=== PATIENT | male | born 1960 | race Caucasian/White ===

== ENCOUNTER → 2017-09-07 08:59 | Outpatient (CLI) | payer BC, SELFPAY ==
--- NOTE | 2017-09-07 09:11 | XR_ITS ---
XR chest 2V HISTORY: Bronchitis, cough ITS.REASON: BRONCHITIS ORDERING PHYSICIAN: Lorna Hines PATIENT AGE: 57 years COMPARISON: None available FINDINGS: The cardiomediastinal silhouette and pulmonary vascularity are within normal limits. No lobar consolidation or collapse. No significant hyperinflation. There is a 9 mm faint ill-defined nodular opacity overlying the left heart on the frontal view. This could be due to summation artifact, nipple artifact, or developing nodule. Follow-up is recommended. There is mild biapical pleural thickening.. No acute bony abnormalities. IMPRESSION: 1. No acute finding. 2. Ill-defined nodular opacity left lung base as described above. Follow-up suggested
== END ==
PROVIDERS: PCP Family Medicine; Visit Provider Nurse Practitioner
DX: J40 Bronchitis, not specified as acute or chronic (principal)
CPT/HCPCS: 71046

== ENCOUNTER → 2017-09-19 12:45 | Outpatient (CLI) | payer BC, SELFPAY ==
--- NOTE | 2017-09-19 12:50 | CT_ITS ---
CT chest wo/w con HISTORY: ITS.REASON: MULTIPLE LUNG NODULES ORDERING PHYSICIAN: Lorna Hines PATIENT AGE: 57 years TECHNIQUE: Axial images obtained. Sagittal and coronal reformatted images are also generated and reviewed. CONTRAST: 75ml Isovue 370 I.V. COMPARISON: Radiograph of 09/07/2017 FINDINGS: No mediastinal or hilar mass is evident. There is mild cardiomegaly. No evidence of aortic aneurysm or central pulmonary embolus. No pericardial effusion. There are calcified nodes in the left hilum. Mild atelectatic/fibrotic changes are present in the left lung base with vascular crowding likely accounting for the nodular opacity noted on the radiograph. No suspicious pulmonary nodules are evident. There are mild atelectatic/fibrotic changes in the right lung bases well. Upper abdominal images show splenomegaly at 14 cm. No acute bony findings. IMPRESSION: 1. No suspicious pulmonary nodules evident. 2. Mild bibasilar atelectasis or fibrotic change. 3. Nodular opacity overlying the left lower chest on the radiograph may been due to summation density from vascular crowding or perhaps a nipple shadow. 4. Mild cardiomegaly and mild splenomegaly
== END ==
PROVIDERS: Family Provider Family Medicine; PCP Family Medicine; Visit Provider Nurse Practitioner
DX: R93.8 Abnormal findings on diagnostic imaging of other specified body structures (principal); R91.8 Other nonspecific abnormal finding of lung field
CPT/HCPCS: 71270; Q9967

== ENCOUNTER → 2017-12-18 13:21 | Outpatient (CLI) | payer BC, SELFPAY ==
--- NOTE | 2017-12-18 13:30 | CT_ITS ---
CT abdomen pelvis wo con CLINICAL INDICATION: ITS.REASON: HEMATURIA,FLANK PAIN, ORDERING PHYSICIAN: Henry Rajan MD PATIENT AGE: 57 years COMPARISON: 12/15/2016 TECHNIQUE: Axial images obtained with sagittal and coronal reformats. All CT scans at the facility use one or more dose reduction, viz: automated exposure control; ma/kV adjustment per patient size (including targeted exams where dose is matched to indication; i.e. head); or iterative reconstruction technique. PROCEDURE: Oral Contrast: None IV Contrast: None . FINDINGS: There are chronic changes in the lung bases. No focal liver lesion. The gallbladder, spleen, adrenal glands, and pancreas have an unremarkable unenhanced CT appearance. No renal or ureteral calculi. No hydronephrosis or renal mass. No intestinal obstruction or free air. Prior appendectomy. There are are a few colonic diverticula. No evidence of diverticulitis. Prostate is enlarged measuring 5.6 x 5.4 cm transverse and AP. Urinary bladder wall is thickened and there is some calcification noted base urinary bladder centrally slightly toward the right similar to the previous exam. Increased density is present in the left inguinal region may be due to prior surgery. There are few small mesenteric nodes. No acute bony anomalies. IMPRESSION: 1. Overall no significant change compared to 12/15/2016. 2. There remains enlarged prostate and seminal vesicles with indentation along the base the urinary bladder and minimal calcification at the base the urinary bladder along with mild thickening of the urinary bladder. These findings are not significantly changed. 3. No renal or ureteral calculi
== END ==
PROVIDERS: Family Provider Family Medicine; PCP Family Medicine; Visit Provider Urology
DX: R31.9 Hematuria, unspecified (principal); R10.9 Unspecified abdominal pain; N20.0 Calculus of kidney
CPT/HCPCS: 74176

== ENCOUNTER → 2019-05-09 14:11 | Outpatient (CLI) | payer BC, SELFPAY ==
--- NOTE | 2019-05-09 14:12 | US_ITS ---
PROCEDURE: US KIDNEY CLINICAL INDICATION: Pain with urination COMPARISON: No exams were available for comparison FINDINGS: The kidneys are normal size shape and position. No hydronephrosis mass or perinephric fluid evident. IMPRESSION: Negative bilateral renal ultrasound Dictated by: Harshad Quinones MD 05/09/2019 18:30 Electronically signed by Harshad Quinones MD in [place] 05/09/2019 18:30
== END ==
PROVIDERS: PCP Family Medicine; Visit Provider Urology
DX: R10.9 Unspecified abdominal pain (principal); R31.9 Hematuria, unspecified
CPT/HCPCS: 76770

== ENCOUNTER → 2019-05-22 07:42 | Outpatient (CLI) | payer BC, SELFPAY ==
--- NOTE | 2019-05-22 07:44 | CT_ITS ---
PROCEDURE: CT ABDOMEN PELVIS WO CON CLINICAL INDICATION: KIDNEY STONE Frequent urinary tract infections COMPARISON: [facility] CT abdomen pelvis wo con from 12/18/2017 TECHNIQUE: Axial images obtained with sagittal and coronal reformats. All CT scans at the facility use one or more dose reduction, viz: automated exposure control, ma/kV adjustment per patient size (including targeted exams where dose is matched to indication, i.e. head), or iterative reconstruction technique. FINDINGS: LOWER THORAX: There are coronary artery calcifications. There are few small nodes in the periaortic region ABDOMEN & PELVIS: In the lower hemithorax the liver, gallbladder, spleen, adrenal glands, and pancreas have an unremarkable unenhanced appearance. No renal or ureteral calculi are evident. A small hyperdensity is present along the upper pole of the left kidney and may be due to a small hyperdense cyst. This is nonspecific too small to categorize measuring approximately 5 mm. No evidence of appendicitis. No intestinal obstruction or free air. There is a mild amount of retained colonic feces. There are scattered diverticula within the descending and sigmoid colon. The prostate is enlarged at 5.7 by 5 cm. Along the anterior aspect of the prostate and at the base of the urinary bladder there is an area of coarse rounded calcification measuring 2 x 1.4 cm. It is uncertain whether this is within the urinary bladder wall, lumen, or peripheral aspect of the prostate. This has increased compared to the previous exam. There is a small right inguinal hernia containing fat. There are few small lymph nodes in the inguinal region. IMPRESSION: 1. No renal or ureteral calculi. 2. Enlarging coarse calcification along the base of the urinary bladder posteriorly which could be due to calcification within the wall, within the urinary bladder lumen/bladder stone or even in the anterior aspect of the prostate. Cystoscopy may be of further value. 3. 5 mm hyperdensity upper pole left kidney nonspecific and could be due to small hyperdense cyst. Dictated by: Harshad Quinones MD 05/22/2019 18:09 Electronically signed by Harshad Quinones MD in [place] 05/22/2019 18:09
== END ==
PROVIDERS: PCP Family Medicine; Visit Provider Urology
DX: N20.0 Calculus of kidney (principal)
CPT/HCPCS: 74176

== ENCOUNTER 2021-02-13 21:07 | Emergency (ER) | payer BC, SELFPAY ==
[2021-02-13 21:22] VITALS: BP 170/113; PULSE 110; RESP 26; TEMP 37.6; O2SAT 96; BMI 29.4
[2021-02-13 21:48] LABS: Microscopic, Urine URINE MICROSCOPIC (MICROSCOPIC)
--- NOTE | 2021-02-13 21:49 | HMH.EDGENADL ---
ED Disposition Clinical Impression: Acute urinary retention Disposition: Home, Self-Care Condition on Discharge: Good Instructions: How to Care for Your Victor Catheter -- Male, DI for Urinary Retention in Men Additional Instructions: Keep Victor catheter in until further instructed by Dr. Rajan. Call Dr. Rajan tomorrow morning to arrange follow-up. Urine culture has been performed, results generally take 2 to 3 days. Follow-up the results of this test with Dr. Rajan within 2 to 3 days. Referrals: Aly Johns MD [Primary Care Provider] - - Critical Care Critical Care Time: No Attestation: On 02/13/21, the high probability of a clinically significant, sudden or life threatening deterioration of the following system(s) required my full and direct attention, intervention and personal management. The time I documented below is in addition to time spent performing reported procedures but includes the following listed in this critical care notation. Medical Decision Making - David Inquiry Pt receiving controlled substance: No Vital Signs: 02/13/21 21:22 Temperature 99.7 F H Temperature Source Oral Pulse Rate [Right] 110 H Respiratory Rate 26 H Blood Pressure [Right Arm] 170/113 H Blood Pressure Mean [Right Arm] 132 Blood Pressure Source [Right Arm] Automatic Cuff Blood Pressure Position [Right Arm] Sitting 02 Sat by Pulse Oximetry 96 Oxygen Delivery Method Room Air - Lab Data Lab Results 02/13/21 21:40: Urine Color Yellow, Urine Appearance Cloudy, Urine pH 6.0, Ur Specific [place] 1.020, Urine Protein 2+, Urine Glucose (UA) Negative, Urine Ketones Negative, Urine Blood 3+, Urine Nitrate Negative, Urine Bilirubin Negative, Urine Urobilinogen 0.2, Ur Leukocyte Esterase 1+ A, Urine RBC Tntc, Urine WBC 5-10 Orders (Tests/Meds): ED MEDICATIONS Discontinued Medications Generic Name Dose Route Start Last Admin Trade Name Freq PRN Reason Stop Dose Admin Lidocaine HCl 10 ml 02/13/21 21:44 02/13/21 21:47 Lidocaine 2% Urojet 10ml TOPICAL 02/13/21 21:45 10 ml ONCE ONE Administration ORDERS Category Date Time Status Urine Culture Stat Micro 02/13/21 21:40 Received General Adult HPI - General Chief complaint: Urogenital-Male Stated complaint: Surg 02/10 can't unirate Time Seen by Provider: 02/13/21 21:49 Mode of Arrival: Ambulatory Limitations: No Limitations Description of Symptoms (Recalled from ER Triage Doc. by RN): Pt states he had a prcedure on his prostate and a stone removal was performed by Dr Rajan Urology at [facility] on . Pt was discharged yesterday and has not been able to urinate more than a dribble , pt is very uncomfortable at this time. - History of Present Illness HPI narrative: Patient complains of urinary retention. Discharged yesterday from [facility] after Dr. Rajan removed 3 bladder stones from him on . Victor catheter inserted prior to my arrival and the patient symptoms have resolved. 900 cc of immediate output. No fever, no vomiting. - Related Data Home Medications Medication Instructions Recorded Confirmed acetaminophen 500 mg tablet 500 mg PO Q6H PRN 07/05/17 06/17/19 alprazolam 0.25 mg tablet 0.25 mg PO BID 07/05/17 06/17/19 duloxetine 30 mg capsule,delayed 30 mg PO QDAY 07/05/17 06/17/19 release fluticasone propionate 110 1 puff INHALATION BID 07/05/17 06/17/19 mcg/actuation HFA aerosol inhaler ibuprofen 200 mg tablet 200 mg PO ONCE PRN 07/05/17 06/17/19 naproxen sodium 220 mg tablet 220 mg PO Q12H 07/05/17 06/17/19 pseudoephedrine HCl 30 mg tablet 30 mg PO ONCE 07/05/17 06/17/19 rabeprazole 20 mg tablet,delayed 20 mg PO QDAY 07/05/17 06/17/19 release tamsulosin 0.4 mg capsule 0.4 mg PO QDAY 07/05/17 06/17/19 zolpidem 10 mg tablet 10 mg PO .BEDTIME PRN tab 07/05/17 06/17/19 cholecalciferol (vitamin D3) 125 5,000 unit PO DAILY cap 11/06/17 06/17/19 mcg (5,000 unit) capsule Allergies
[2021-02-13 21:54] LABS: Appearance,Urine CLOUDY (Clear); Bilirubin,Urine Negative (Negative); Blood, Urine 3+ (Negative); Color,Urine YELLOW (Yellow); Glucose,Urine (UA) Negative (Negative); Ketones,Urine Negative (Negative); Leukocyte Esterase,Urine 1+ (Negative); Nitrate,Urine Negative (Negative); Protein,Urine 2+ (Negative); Urobilinogen,Urine 0.2 EU/dl (0.2)
[2021-02-13 21:58] LABS: RBC,Urine TNTC #/hpf (0-3)
[2021-02-13 22:20] VITALS: BP 139/80; PULSE 87; RESP 14; TEMP 36.7; O2SAT 97
--- NOTE | 2021-02-13 22:23 | PC.NURSE ---
F/C CHANGED OVER TO A LEG BAG PER PATIENT REQUEST.
== END 2021-02-13 22:24 | disposition home or self-care (01) ==
PROVIDERS: Emergency Provider Emergency Medicine; PCP Family Medicine
DX: R33.0 Drug induced retention of urine (principal); K21.9 Gastro-esophageal reflux disease without esophagitis; F41.9 Anxiety disorder, unspecified
CPT/HCPCS: 81001; 87086; 99282

== ENCOUNTER → 2022-01-31 20:03 | Outpatient (CLI) | payer BC, SELFPAY ==
[2022-02-01 00:06] LABS: Coronavirus 19, PCR Not Detected (NotDetected); Influenza A, PCR Not Detected (NotDetected); Influenza B, PCR Not Detected (NotDetected)
== END ==
PROVIDERS: PCP Family Medicine; Visit Provider Emergency Medicine
DX: Z20.822 Contact with and (suspected) exposure to COVID-19 (principal)
CPT/HCPCS: C9803; U0003; U0005

== ENCOUNTER 2023-05-26 08:49 | Emergency (ER) | payer BC, SELFPAY ==
[2023-05-26 08:55] VITALS: BP 168/96; PULSE 98; RESP 22; TEMP 37.1; O2SAT 95; BMI 31.5
--- NOTE | 2023-05-26 09:07 | EXP.UTC ---
Discharge Plan Disposition Patient Disposition: Home, Self-Care Condition: Good Prescriptions Prescriptions: New benzonatate [benzonatate] 100 mg capsule 100 mg PO TIDP PRN (Reason: Cough) Qty: 30 0RF methylprednisolone 4 mg Tablets,Dose Pack 4 mg PO DIRECTED Qty: 21 0RF amoxicillin-pot clavulanate 875-125 mg Tablet 1 tab PO Q12H Qty: 20 0RF No Action rabeprazole 20 mg tablet,delayed release (DR/EC) 20 mg PO DAILY zolpidem 5 mg tablet 5 mg PO HSP PRN (Reason: Insomnia) Referrals Follow up/Referrals: Jd Boateng MD [Primary Care Provider] - See instructions Activity Restrictions/Add. Instructions Additional Instructions/Restrictions: Drink plenty of fluids. Take tylenol or ibuprofen for pain or fever. Take the medications as directed. Follow up with your regular doctor. GO TO THE ER FOR ANY WORSENING SYMPTOMS Don't start the oral steroids until tomorrow, since you had the shot here today. Clinical Impressions Clinical Impression: Acute bronchitis Instructions Patient Instructions: Acute Bronchitis, DI for Acute Bronchitis, Dexamethasone, Ceftriaxone Injection Discharge ED Provider: Qamar Dhillon [facility] [place] HPI General Stated complaint: chest congestion Mode of Arrival: Ambulatory Source of Information: Patient Limitations: No Limitations Time Seen by Provider: 05/26/23 09:07 Description of Symptoms (Recalled from Triage Doc. by RN): PATIENT C/O CHEST CONGESTION SINCE SUNDAY NIGHT HEENT Symptoms (Recalled from RN notes): No Resp Symptoms (Recalled from RN notes): Yes Skin Symptoms (Recalled from RN notes): No MS Symptoms (Recalled from RN notes): No Functional Status (Recalled from RN notes): WNL History of Present Illness Provider Complaint: He states that for the past 2 days he has had chest congestion and sinus congestion. He usually gets bronchitis this time every year. Related Data Home Medications Medication Instructions Recorded Confirmed rabeprazole 20 mg tablet,delayed 20 mg PO DAILY GERD 05/26/23 05/26/23 release zolpidem 5 mg tablet 5 mg PO HSP PRN Insomnia 05/26/23 05/26/23 Previous Rx's Medication Instructions Recorded amoxicillin 875 mg-potassium 1 tab PO Q12H #20 tabs 05/26/23 clavulanate 125 mg tablet benzonatate 100 mg capsule 100 mg PO TIDP PRN Cough #30 caps 05/26/23 methylprednisolone 4 mg tablets in 4 mg PO DIRECTED #21 tabs 05/26/23 a dose pack Allergies Allergy/AdvReac Type Severity Reaction Status Date / Time No Known Allergies Allergy Unverified 06/17/19 13:47 Worker's Comp Is this a Worker's Comp case?: No PFSH PFS Disclaimer: The information contained in this section may have been updated after the patient was seen, as this information can be updated by other users. 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 (Updated 05/26/23 @ 09:37 by Qamar Dhillon APRN) Anxiety History of gastroesophageal reflux (GERD) Kidney stone Prostate disorder Urinary tract infection Surgical History (Updated 05/26/23 @ 09:05 by Bruna Young RN) History of appendectomy History of hernia repair Social History Smoking Status: Never smoker alcohol intake: never substance use type: denies use current occupational status: employed Travel in the last 8 weeks: None household members: spouse housing: house ROS Obtained: Yes All systems reviewed & no additional complaints except as documented Constitutional Constitutional: Reports poor appetite Eyes Eyes: Reports system reviewed and no additional complaints, except as documented ENT Ears, Nose, Mouth, and Throat: Reports as per HPI Cardiovascular Cardiovascular: Reports system reviewed and no additional complaints, except as documented and Denies chest pain Respiratory Respiratory: Denies shortness of breath, Reports chest congestion, Reports cough, Denies stridor and Denies wheezing Gastrointestinal Gastrointestingal: Reports system reviewed and no additi
[2023-05-26 09:41] VITALS: BP 168/96; PULSE 98; RESP 22; TEMP 37.1; O2SAT 95
== END 2023-05-26 09:44 | disposition home or self-care (01) ==
PROVIDERS: Emergency Provider Nurse Practitioner Family; PCP Family Medicine
DX: J20.9 Acute bronchitis, unspecified (principal); R09.89 Other specified symptoms and signs involving the circulatory and respiratory systems; R09.81 Nasal congestion; K21.9 Gastro-esophageal reflux disease without esophagitis; F41.9 Anxiety disorder, unspecified
CPT/HCPCS: 96372; 99204; 99212; G0463; J0696

== ENCOUNTER 2023-06-28 08:46 | Emergency (ER) | payer BC, SELFPAY ==
[2023-06-28 09:20] VITALS: BP 143/104; PULSE 103; RESP 20; TEMP 37.2; O2SAT 95; BMI 31.5
--- NOTE | 2023-06-28 09:22 | EXP.UTC ---
Discharge Plan Disposition Patient Disposition: Home, Self-Care Condition: Good Prescriptions Prescriptions: New azithromycin [Zithromax] 250 mg tablet 250 mg PO UD DOSE PK Qty: 6 0RF Rx Instructions: Take two (2) tablets today, then one (1) tablet days #2 thru #5 benzonatate [benzonatate] 100 mg capsule 100 mg PO TIDP PRN (Reason: Cough) Qty: 30 0RF methylprednisolone 4 mg Tablets,Dose Pack 4 mg PO DIRECTED Qty: 21 0RF guaifenesin [Mucinex] 600 mg tablet extended release 12hr 600 - 1,200 mg PO BIDP PRN (Reason: Congestion) Qty: 30 0RF No Action rabeprazole 20 mg tablet,delayed release (DR/EC) 20 mg PO DAILY pravastatin 20 mg tablet 20 mg PO DAILY sildenafil (pulm.hypertension) 20 mg tablet 20 mg PO DAILYP PRN (Reason: .) Patient Comments: TAKE 1 TO 2 TABLET(S) BY MOUTH EVERY DAY NEEDED DIRECTED Referrals Follow up/Referrals: Jd Boateng MD [Primary Care Provider] - See instructions Activity Restrictions/Add. Instructions Additional Instructions/Restrictions: Drink plenty of fluids. Take tylenol or ibuprofen for pain or fever. Take the medications as directed. Follow up with your regular doctor. GO TO THE ER FOR ANY WORSENING SYMPTOMS Clinical Impressions Clinical Impression: Acute bronchitis, Sinusitis, Acute viral syndrome Stand Alone Forms Stand Alone Forms: Work/School Release Instructions Patient Instructions: DI for Sinusitis, DI for Viral Syndrome Discharge ED Provider: Qamar Dhillon [facility] [place] HPI General Stated complaint: achey,fever,congested,cough Time Seen by Provider: 06/28/23 09:21 History of Present Illness Provider Complaint: He states that for the past 2 days he has had cough, sinus congestion and malaise. Related Data Home Medications Medication Instructions Recorded Confirmed rabeprazole 20 mg tablet,delayed 20 mg PO DAILY GERD 05/26/23 06/28/23 release pravastatin 20 mg tablet 20 mg PO DAILY 06/28/23 06/28/23 sildenafil (pulm.hypertension) 20 20 mg PO DAILYP PRN . 06/28/23 06/28/23 mg tablet Previous Rx's Medication Instructions Recorded azithromycin 250 mg tablet 250 mg PO UD DOSE PK #6 tabs 06/28/23 (Zithromax) benzonatate 100 mg capsule 100 mg PO TIDP PRN Cough #30 caps 06/28/23 guaifenesin 600 mg tablet, 600 - 1,200 mg PO BIDP PRN 06/28/23 extended release 12 hr (Mucinex) Congestion #30 tabs methylprednisolone 4 mg tablets in 4 mg PO DIRECTED #21 tabs 06/28/23 a dose pack Allergies Allergy/AdvReac Type Severity Reaction Status Date / Time No Known Allergies Allergy Unverified 06/17/19 13:47 [facility] Disclaimer: The information contained in this section may have been updated after the patient was seen, as this information can be updated by other users. 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 (Updated 06/28/23 @ 09:46 by Qamar Dhillon APRN) Anxiety History of gastroesophageal reflux (GERD) Kidney stone Prostate disorder Urinary tract infection Surgical History (Updated 05/26/23 @ 09:05 by Bruna Young RN) History of appendectomy History of hernia repair Social History Smoking Status: Never smoker alcohol intake: never substance use type: denies use current occupational status: employed Travel in the last 8 weeks: None household members: spouse housing: house ROS Obtained: Yes All systems reviewed & no additional complaints except as documented Constitutional Constitutional: Reports poor appetite Eyes Eyes: Reports system reviewed and no additional complaints, except as documented ENT Ears, Nose, Mouth, and Throat: Reports as per HPI Cardiovascular Cardiovascular: Reports system reviewed and no additional complaints, except as documented and Denies chest pain Respiratory Respiratory: Denies shortness of breath, Reports chest congestion, Reports cough, Denies stridor and Denies wheezing Gastrointestinal Gastrointestingal: Reports system re
[2023-06-28 09:35] LABS: UTC Influenza A Antigen Negative (Negative); UTC Influenza B Antigen Negative (Negative)
[2023-06-28 09:42] VITALS: BP 143/104; PULSE 103; RESP 20; TEMP 37.2; O2SAT 95
== END 2023-06-28 10:03 | disposition home or self-care (01) ==
PROVIDERS: Emergency Provider Nurse Practitioner Family; PCP Family Medicine
DX: U07.1 COVID-19 (principal); J01.90 Acute sinusitis, unspecified; J20.9 Acute bronchitis, unspecified; R50.9 Fever, unspecified; R05.9 Cough, unspecified; R09.81 Nasal congestion; M79.18 Myalgia, other site; R09.89 Other specified symptoms and signs involving the circulatory and respiratory systems; R53.81 Other malaise
CPT/HCPCS: 87635; 87804; 99212; 99214; G0463

== ENCOUNTER 2023-07-12 18:00 | Emergency (ER) | payer BC, SELFPAY ==
[2023-07-12 18:40] VITALS: BP 151/86; PULSE 98; RESP 18; TEMP 37; O2SAT 95; BMI 32.2
--- NOTE | 2023-07-12 18:51 | ED_ITS ---
Discharge Plan Disposition Patient Disposition: Home, Self-Care Condition: Good Prescriptions Prescriptions: New benzonatate [benzonatate] 100 mg capsule 100 mg PO TIDP PRN (Reason: Cough) Qty: 30 0RF methylprednisolone 4 mg Tablets,Dose Pack 4 mg PO DIRECTED 6 Days Qty: 21 0RF Rx Instructions: Take 1 pack as directed for 6 days amoxicillin-pot clavulanate 875-125 mg Tablet 1 tab PO Q12H Qty: 20 0RF No Action alprazolam 0.25 mg tablet 0.25 mg PO DAILY rabeprazole 20 mg tablet,delayed release (DR/EC) 20 mg PO DAILY pravastatin 20 mg tablet 20 mg PO DAILY sildenafil (pulm.hypertension) 20 mg tablet 20 mg PO DAILYP PRN (Reason: .) Patient Comments: TAKE 1 TO 2 TABLET(S) BY MOUTH EVERY DAY NEEDED DIRECTED guaifenesin [Mucinex] 600 mg tablet extended release 12hr 600 - 1,200 mg PO BIDP PRN (Reason: Congestion) Qty: 30 0RF Referrals Follow up/Referrals: Jd Boateng MD [Primary Care Provider] - See instructions Activity Restrictions/Add. Instructions Additional Instructions/Restrictions: Drink plenty of fluids. Take tylenol for pain or fever. Take the medications as directed. Follow up with your regular doctor. GO TO THE ER FOR ANY WORSENING SYMPTOMS Clinical Impressions Clinical Impression: Acute bronchitis Instructions Patient Instructions: Acute Bronchitis, DI for Acute Bronchitis Discharge ED Provider: Qamar Dhillon [facility] [place] General Stated complaint: jacqui Time Seen by Provider: 07/12/23 18:50 History of Present Illness Provider Complaint: He states that he had covid-19 about 2 weeks ago. He got better from that, but since then he has had a worsening cough. He denies any fever/chills. Related Data Home Medications Medication Instructions Recorded Confirmed rabeprazole 20 mg tablet,delayed 20 mg PO DAILY GERD 05/26/23 07/12/23 release pravastatin 20 mg tablet 20 mg PO DAILY 06/28/23 07/12/23 sildenafil (pulm.hypertension) 20 20 mg PO DAILYP PRN . 06/28/23 07/12/23 mg tablet alprazolam 0.25 mg tablet 0.25 mg PO DAILY Anxiety 07/12/23 07/12/23 Previous Rx's Medication Instructions Recorded guaifenesin 600 mg tablet, 600 - 1,200 mg PO BIDP PRN 06/28/23 extended release 12 hr (Mucinex) Congestion #30 tabs amoxicillin 875 mg-potassium 1 tab PO Q12H #20 tabs 07/12/23 clavulanate 125 mg tablet benzonatate 100 mg capsule 100 mg PO TIDP PRN Cough #30 caps 07/12/23 methylprednisolone 4 mg tablets in 4 mg PO DIRECTED 6 days #21 tabs 07/12/23 a dose pack Allergies Allergy/AdvReac Type Severity Reaction Status Date / Time No Known Allergies Allergy Verified 07/12/23 19:07 [facility] Disclaimer: The information contained in this section may have been updated after the patient was seen, as this information can be updated by other users. 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 (Updated 07/12/23 @ 19:24 by Qamar Dihllon APRN) Anxiety History of gastroesophageal reflux (GERD) Kidney stone Prostate disorder Urinary tract infection Surgical History History of appendectomy History of hernia repair Social History Smoking Status: Never smoker alcohol intake: never substance use type: denies use current occupational status: employed Travel in the last 8 weeks: None household members: spouse housing: house ROS Obtained: Yes All systems reviewed & no additional complaints except as documented Constitutional Constitutional: Reports poor appetite Eyes Eyes: Reports system reviewed and no additional complaints, except as documented ENT Ears, Nose, Mouth, and Throat: Reports as per HPI Cardiovascular Cardiovascular: Reports system reviewed and no additional complaints, except as documented and Denies chest pain Respiratory Respiratory: Denies shortness of breath, Denies chest congestion, Reports cough, Denies stridor and Denies wheezing Gastrointestinal Gastrointestingal: Reports system reviewed and no additional complaints, except as documented; Denies abdominal pain, diarrhea or vomiting Musculoskeletal Musculoskeletal: Reports system reviewed and no additional complaints, except as documented and Denies arthralgias Integumentary/Breasts Skin/Breast: Reports system reviewed and no additional complaints, except as documented and Denies rash Neurologic Neurologic: Denies paresthesias Allergic/Immunologic Allergic/Immunologic: Denies wheezing Physical Exam General General appearance: alert and in no apparent distress Head Head exam: atraumatic, normocephalic and normal inspection Eye Eye exam: Present normal appearance, PERRL and EOMI ENT ENT exam: Present normal exam, normal oropharynx, mucous membranes moist, TM's normal bilaterally and normal external ear exam Neck Neck exam: Present normal inspection, full ROM and trachea midline; Absent meningismus or lymphadenopathy Chest Chest inspection: Present normal inspection and symmetric chest wall rise; Absent tenderness Respiratory Respiratory exam: Present normal lung sounds bilaterally; Absent respiratory distress Cardiovascular Cardiovascular exam: Present regular rate and normal rhythm; Absent JVD Abdominal Exam Abdominal exam: Present soft and normal bowel sounds; Absent distention, tenderness or guarding Extremities Exam Extremities exam: Present normal inspection, full ROM and normal capillary refill; Absent calf tenderness Back Exam Back exam: Present normal inspection; Absent tenderness Neurological Exam Neurological exam: Present alert and oriented X3 Psychiatric Psychiatric exam: Present normal affect and normal mood Skin Skin exam: Present warm, dry, intact and normal color Lymphatic Lymphatic Findings: no adenopathy Medical Decision Making Medical Records Medical records reviewed: No I reviewed the patient's medical records. David Inquiry Pt receiving controlled substance: No Radiology Data #1: Image(s): Chest Image Reviewed: Yes I reviewed the patient's radiology image and Yes I have reviewed radiologist's interpretation Preliminary Findings: No Infiltrates Seen PROCEDURE INFORMATION: Exam: XR Chest Exam date and time: 07/12/2023 6:53 PM Age: 63 years old Clinical indication: Cough; Additional info: Cough x 4 days TECHNIQUE: Imaging protocol: Radiologic exam of the chest. Views: 2 views. COMPARISON: CHESTWW CT chest wo/w con 09/19/2017 1:10 PM FINDINGS: Lungs: Unremarkable. No consolidation. Pleural spaces: Unremarkable. No pleural effusion. No pneumothorax. Heart/Mediastinum: Unremarkable. No cardiomegaly. Bones/joints: Unremarkable. IMPRESSION: No acute pulmonary findings.
--- NOTE | 2023-07-12 18:58 | XR_ITS ---
PROCEDURE INFORMATION: Exam: XR Chest Exam date and time: 07/12/2023 6:53 PM Age: 63 years old Clinical indication: Cough; Additional info: Cough x 4 days TECHNIQUE: Imaging protocol: Radiologic exam of the chest. Views: 2 views. COMPARISON: CHESTWW CT chest wo/w con 09/19/2017 1:10 PM FINDINGS: Lungs: Unremarkable. No consolidation. Pleural spaces: Unremarkable. No pleural effusion. No pneumothorax. Heart/Mediastinum: Unremarkable. No cardiomegaly. Bones/joints: Unremarkable. IMPRESSION: No acute pulmonary findings.
[2023-07-12 19:35] VITALS: BP 151/86; PULSE 98; RESP 18; TEMP 37; O2SAT 95
== END 2023-07-12 19:35 | disposition home or self-care (01) ==
PROVIDERS: Emergency Provider Nurse Practitioner Family; PCP Family Medicine
DX: J20.9 Acute bronchitis, unspecified (principal)
CPT/HCPCS: 71046; 99212; 99214; G0463

== ENCOUNTER 2024-03-15 17:09 | Emergency (ER) | payer BC, SELFPAY ==
[2024-03-15 17:25] VITALS: BP 139/90; PULSE 100; RESP 21; TEMP 37.1; O2SAT 94; BMI 30.9
--- NOTE | 2024-03-15 17:57 | ED_ITS ---
Discharge Plan Disposition Patient Disposition: Home, Self-Care Condition: Good Prescriptions Prescriptions: New amoxicillin 500 mg tablet 500 mg PO BID 10 Days Qty: 20 0RF fluticasone propionate 50 mcg/actuation spray,suspension 1 spray intranasal DAILY Qty: 9.9 0RF prednisone 20 mg tablet 20 mg PO BID Qty: 10 0RF No Action sildenafil (pulm.hypertension) 20 mg tablet 20 mg PO DAILYP PRN (Reason: .) Patient Comments: TAKE 1 TO 2 TABLET(S) BY MOUTH EVERY DAY NEEDED DIRECTED zolpidem 5 mg tablet 5 mg PO DAILY Referrals Follow up/Referrals: Jd Boateng MD [Primary Care Provider] - See instructions Activity Restrictions/Add. Instructions Additional Instructions/Restrictions: Start antibiotic patient to take as ordered for a full length of time even if you feel better. It may take 2-3 days to notice much improvement so be sure to use conservative measures as discussed for symptoms. Flonase 1 spray each nostril daily to help with nasal congestion, sinus and ear pressure/information Increase fluids Humidifier/vaporizer as needed Tylenol and ibuprofen as needed for fever or pain. If symptoms do not improve or get worse return or be seen in the ER Follow-up with primary care this week Clinical Impressions Clinical Impression: Sinusitis Instructions Patient Instructions: DI for Sinusitis Print Language Print Language: Ukrainian Discharge ED Provider: Janis ([facility])Allyn [facility] [place] HPI General Stated complaint: jacqui , painful breathing Mode of Arrival: Ambulatory Source of Information: Patient Limitations: No Limitations Time Seen by Provider: 03/15/24 17:57 Description of Symptoms (Recalled from Triage Doc. by RN): PATIENT C/O SINUS DRAINAGE AND CHEST CONGESTION THAT STARTED A COUPLE OF DAYS AGO HEENT Symptoms (Recalled from RN notes): Yes Resp Symptoms (Recalled from RN notes): Yes Skin Symptoms (Recalled from RN notes): No MS Symptoms (Recalled from RN notes): No Functional Status (Recalled from RN notes): WNL History of Present Illness Provider Complaint: 64 yr old male presents for sinus congestion, sinus pressure, cough, chest congestion Related Data Home Medications ?Medication ?Instructions ?Recorded ?Confirmed sildenafil (pulm.hypertension) 20 20 mg PO DAILYP PRN . 06/28/23 03/15/24 mg tablet zolpidem 5 mg tablet 5 mg PO DAILY 03/15/24 03/15/24 Previous Rx's ?Medication ?Instructions ?Recorded amoxicillin 500 mg tablet 500 mg PO BID 10 days #20 tabs 03/15/24 fluticasone propionate 50 1 spray intranasal DAILY #9.9 mL 03/15/24 mcg/actuation nasal spray,suspension prednisone 20 mg tablet 20 mg PO BID #10 tabs 03/15/24 Allergies Allergy/AdvReac Type Severity Reaction Status Date / Time No Known Allergies Allergy Verified 07/12/23 19:07 Worker's Comp Is this a Worker's Comp case?: No PFSH PFS Disclaimer: The information contained in this section may have been updated after the pat ient was seen, as this information can be updated by other users. 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) Smoking Status: Never smoker alcohol intake: never substance use type: denies use current occupational status: employed Travel in the last 8 weeks: None household members: spouse housing: house ROS Obtained: Yes All systems reviewed & no additional complaints except as documented Constitutional Constitutional: Reports system reviewed and no additional complaints, except as documented Eyes Eyes: Reports system reviewed and no additional complaints, except as documented ENT Ears, Nose, Mouth, and Throat: Reports system reviewed and no additional complaints, except as documented, Reports as per HPI, Reports nasal congestion, Reports nasal discharge, Reports sinus pain and Reports sinus pressure Cardiovascular Cardiovascular: Reports system reviewed and no additional complaints, except as documented Respiratory Respiratory: Reports system reviewed and no additional complaints, except as documented, Reports as per HPI, Reports cough and Reports non-productive cough Musculoskeletal Musculoskeletal: Reports system reviewed and no additional complaints, except as documented Integumentary/Breasts Skin/Breast: Reports system reviewed and no additional complaints, except as documented Neurologic Neurologic: Reports system reviewed and no additional complaints, except as documented Endocrine Endocrine: Reports system reviewed and no additional complaints, except as documented Hematologic/Lymphatic Henatologic/Lymphatic: Reports system reviewed and no additional complaints, except as documented Physical Exam General General appearance: alert and in no apparent distress Head Head exam: atraumatic Eye Eye exam: Present normal appearance and PERRL ENT ENT exam: Present mucous membranes moist and TM's normal bilaterally Expanded ENT Exam Nose exam: Present sinus tenderness Respiratory Respiratory exam: Present normal lung sounds bilaterally Cardiovascular Cardiovascular exam: Present regular rate and normal rhythm Neurological Exam Neurological exam: Present alert and oriented X3 Skin Skin exam: Present warm and intact Lymphatic Lymphatic Findings: no adenopathy Medical Decision Making Medical Records Medical records reviewed: Yes I reviewed the patient's medical records. David Inquiry Pt receiving controlled substance: No David was queried for this patient: No Vital Signs: 03/15/24 17:25 Temperature 98.7 F Temperature Source Oral Pulse Rate [Left Brachial] 100 H Respiratory Rate 21 Blood Pressure [Left Arm] 139/90 Blood Pressure Mean [Left Arm] 106 Blood Pressure Source [Left Arm] Automatic Cuff Blood Pressure Position [Left Arm] Sitting 02 Sat by Pulse Oximetry 94 L Oxygen Delivery Method Room Air
[2024-03-15 18:09] VITALS: BP 139/90; PULSE 100; RESP 21; TEMP 37.1; O2SAT 94
== END 2024-03-15 18:10 | disposition home or self-care (01) ==
PROVIDERS: Emergency Provider Nurse Practitioner Family; PCP Family Medicine
DX: J01.90 Acute sinusitis, unspecified (principal); R07.1 Chest pain on breathing; R05.9 Cough, unspecified; R09.89 Other specified symptoms and signs involving the circulatory and respiratory systems
CPT/HCPCS: 99212; 99214; G0463

== ENCOUNTER 2024-12-04 15:56 | Outpatient (RCR) | payer BC, SELFPAY | END 2024-12-04 23:59 | disposition home or self-care (01) | LOC: PT 15:56 | PROVIDERS: Visit Provider Family Medicine Sports Medicine | DX: S83.242A Other tear of medial meniscus, current injury, left knee, initial encounter (principal); M84.453A Pathological fracture, unspecified femur, initial encounter for fracture | CPT/HCPCS: 97162; 97530 ==

== ENCOUNTER 2024-12-26 10:00 | Outpatient (RCR) | payer BC, SELFPAY | END 2024-12-26 23:59 | disposition home or self-care (01) | LOC: PT 10:00 | PROVIDERS: Visit Provider Family Medicine Sports Medicine | DX: S83.242A Other tear of medial meniscus, current injury, left knee, initial encounter (principal); M84.453A Pathological fracture, unspecified femur, initial encounter for fracture | CPT/HCPCS: 97035; 97110 ==

== ENCOUNTER 2025-05-28 16:04 | Outpatient (CLI) | payer MEDICARE, SELFPAY | END 2025-05-28 23:59 | disposition home or self-care (01) | LOC: LAB 16:07 | PROVIDERS: PCP Family Medicine; Visit Provider Urology | DX: R31.9 Hematuria, unspecified (principal) | CPT/HCPCS: 87086 ==